=== PATIENT | female | born 1950 | race Caucasian/White ===

== ENCOUNTER 2024-12-10 06:32 | Day surgery (SDC) | payer BC, SELFPAY ==
[2024-12-07 11:34] LABS: Hematocrit 38.6 % (37.0-47.0); Hemoglobin 12.9 g/dL (12.0-16.0); Mean Corp Hgb Conc. 33.4 g/dL (33.0-37.0); Mean Corpuscular Hgb 30.7 pg (27.0-31.0); Mean Corpuscular Volume 91.9 fL (81.0-99.0); Mean Platelet Volume 10.5 fL (7.4-10.4); Platelet Count 181 10^3/uL (130-400); Red Cell Dist. Width 12.9 % (11.5-14.5); White Blood Cell Count 5.3 10^3/uL (4.8-10.8)
[2024-12-07 11:45] LABS: INR 1.03; PT 13.8 Sec (11.4-14.6)
[2024-12-07 11:46] LABS: APTT 31.3 Sec (23.4-35.0)
[2024-12-07 12:26] LABS: ALT (SGPT) 16 U/L (0-35); AST (SGOT) 26 U/L (14-36); Albumin 4.5 g/dl (3.5-5.0); Alkaline Phosphatase 109 U/L (38-126); Blood Urea Nitrogen 21 mg/dl (7-17); Calcium 9.4 mg/dl (8.4-10.2); Glucose 87 mg/dl (70-99); Total Bilirubin 0.6 mg/dl (0.2-1.3); Total Protein 6.7 g/dl (6.3-8.2); eGFR 59.12
[2024-12-07 12:43] LABS: Carbon Dioxide 26 mmol/L (22-30); Chloride 107 mmol/L (98-107); Potassium 4.5 mmol/L (3.5-5.1); Sodium 142 mmol/L (135-145)
[2024-12-07 13:48] VITALS: BMI 22.5
[2024-12-07 15:07] LABS: Glycohemoglobin (HgbA1c) 5.3 % (4.0-5.6)
[2024-12-10] VITALS (12 sets, daily range): BP systolic 108–156; BP diastolic 60–116; BMI 22.5; BMI 23.0
[2024-12-10] MEDS: NORMOSOL-R/PLASMALYTE-A 1000 IV ×2 (12:08→19:21)
--- NOTE | 2024-12-10 12:19 | SUR.OPER ---
Patient has Von Willebrand and she is due to Transemic acid at 1500 today per patient and . Spoke with Anesthesia about this and will also pass this onto the OR when they pick patient up for surgery. Will monitor patient.
--- NOTE | 2024-12-10 13:48 | PTCARENOTE ---
Report given to Sierra MONROE.
--- NOTE | 2024-12-10 17:48 | W.IMMPOSTOP ---
Surgical Immed Post Op Note
-
Primary Surgeon: Krista Jang MD
Assisting Surgeon: none
Pre-op Diagnosis: rectal polyp
Post-op Diagnosis: same
Procedure Performed: transanal excision rectal polyp (partial thickness)
Anesthesia Type: MAC plus local
Specimen / Cultures: rectal polyp
Estimated Blood Loss: 25 cc
Complications: no immediate
Operative Findings: soft 4-5 cm right anterior rectal polyp
Will bring in overnight to watch for bleeding (h/o bleeding dyscrasia)
[2024-12-10 19:07] LABS: % Basophils 0.7 % (0-2); % Eosinophils 0.8 % (0-6); % Immature Granulocytes 0.2 % (0-0.5); % Lymphocytes 9.1 % (20.5-51.1); % Monocytes 2.9 % (1.7-9.3); % Neutrophils 86.3 % (42.2-75.2); Absolute Basophils 0.1 10^3/uL (0-0.2); Absolute Eosinophils 0.1 10^3/uL (0-0.7); Absolute Monocytes 0.3 10^3/uL (0.1-0.6); Absolute Neutrophils 9.1 10^3/uL (1.4-6.5); Hematocrit 35.9 % (37.0-47.0); Hemoglobin 12.2 g/dL (12.0-16.0); Mean Corpuscular Volume 91.3 fL (81.0-99.0); Mean Platelet Volume 9.9 fL (7.4-10.4); Nucleated Red Blood Cells % 0 %; Platelet Count 152 10^3/uL (130-400); Red Blood Cell Count 3.93 10^6/uL (4.20-5.40); White Blood Cell Count 10.6 10^3/uL (4.8-10.8)
[2024-12-10 19:29] LABS: Blood Urea Nitrogen 16 mg/dl (7-17); Calcium 8.7 mg/dl (8.4-10.2); Carbon Dioxide 22 mmol/L (22-30); Chloride 107 mmol/L (98-107); Estimated Creatinine Clearance 51 ml/min; Glucose 89 mg/dl (70-99); Magnesium 2.3 mg/dl (1.6-2.3); Potassium 3.7 mmol/L (3.5-5.1); Sodium 140 mmol/L (135-145); eGFR > 60.00
[2024-12-10] MEDS: TYLENOL PO (20:50)
[2024-12-10] MEDS: BENTYL 20 MG PO (22:29)
[2024-12-10] MEDS: NON-FORMULARY ITEM 2 UNIT PO (22:29)
[2024-12-11] MEDS: TYLENOL 650 MG PO ×3 (00:04→08:11)
[2024-12-11 03:00] VITALS: BP 137/90
[2024-12-11 07:08] LABS: % Basophils 0.2 % (0-2); % Immature Granulocytes 0.3 % (0-0.5); % Lymphocytes 6.2 % (20.5-51.1); % Monocytes 4.7 % (1.7-9.3); % Neutrophils 88.6 % (42.2-75.2); Absolute Lymphocytes 0.6 10^3/uL (1.2-3.4); Absolute Monocytes 0.5 10^3/uL (0.1-0.6); Absolute Neutrophils 8.5 10^3/uL (1.4-6.5); Hematocrit 33.9 % (37.0-47.0); Hemoglobin 11.6 g/dL (12.0-16.0); Mean Corp Hgb Conc. 34.2 g/dL (33.0-37.0); Mean Corpuscular Hgb 30.9 pg (27.0-31.0); Mean Corpuscular Volume 90.2 fL (81.0-99.0); Mean Platelet Volume 10.2 fL (7.4-10.4); Nucleated Red Blood Cells % 0 %; Platelet Count 158 10^3/uL (130-400); Red Blood Cell Count 3.76 10^6/uL (4.20-5.40); Red Cell Dist. Width 12.8 % (11.5-14.5); White Blood Cell Count 9.6 10^3/uL (4.8-10.8)
[2024-12-11 07:34] LABS: Blood Urea Nitrogen 13 mg/dl (7-17); Calcium 8.9 mg/dl (8.4-10.2); Carbon Dioxide 20 mmol/L (22-30); Chloride 111 mmol/L (98-107); Estimated Creatinine Clearance 56 ml/min; Glucose 100 mg/dl (70-99); Magnesium 2.3 mg/dl (1.6-2.3); Potassium 4.2 mmol/L (3.5-5.1); Sodium 139 mmol/L (135-145); eGFR > 60.00
[2024-12-11 07:45] VITALS: BP 138/83
[2024-12-11] MEDS: ZOLOFT 150 MG PO (08:10)
[2024-12-11] MEDS: NORMOSOL-R/PLASMALYTE-A 1000 IV (08:10)
[2024-12-11] MEDS: BENTYL 20 MG PO (08:11)
[2024-12-11] MEDS: NON-FORMULARY ITEM 1 UNIT PO (08:11)
[2024-12-11] MEDS: TOPROL XL 25 MG PO (08:11)
--- NOTE | 2024-12-11 10:32 | W.PN.CRS1 ---
Today's Communication / Plan
-
discharge
Assessment/Plan
-
POD#1 transanal excision rectal polyp (partial thickness)
Hgb 11.6 (12.2), WBC 9.6, Platelet 158
-Start on a regular diet
-OOB as tolerated
-Pain is well controlled
-Patient has TXA at home if needed
-Okay for discharge today (hgb stable). She will call if she has any bleeding problems at home.
-OR pathology pending. Will call with results.
Subjective Data
Procedure
12/10/2024- transanal excision rectal polyp (partial thickness)
Subjective Data
Date of Service: December 11, 2024
Patient states she feels great. She is only having minor spotting. No overt bleeding. She is hungry. Denies nausea or vomiting. Pain controlled.
Objective Data
-
Vital Signs
Temp Pulse Resp BP Pulse Ox
98.2 F 91 18 138/83 98
12/11/24 07:45 12/11/24 07:45 12/11/24 07:45 12/11/24 07:45 12/11/24 07:45
Intake & Output
12/10/24 12/11/24 12/12/24
06:59 06:59 06:59
Intake Total 580 / 580
Balance 580 / 580
Intake:
Oral fluids 480 / 480
IV fluids (Total) 100 / 100
Normosol 100 / 100
Other:
Number of approximated MODERATE 2
amounts of urine
Lab Results
12/11/24 06:26
12/11/24 06:26
Physical Exam
-
General: No Acute Distress and AOx3
Abdomen: Soft, Non Distended and Non Tender
Skin: Warm and Dry
--- NOTE | 2024-12-11 11:05 | CM ---
Cm reviewed medical records. Patient lives independently with . Patient is not currently with any VN. Patient does not have a history of SNF or DME> Patient is active with her PCP. Patient uses [facility] in [place].
PLAN: home with no needs.
[2024-12-11 11:40] VITALS: BP 133/71
== END 2024-12-11 13:08 | disposition home or self-care (01) ==
LOC: SDS 06:32
PROVIDERS: ATTENDING PHYSICIAN Surgery; FAMILY PHYSICIAN Family Medicine; OTHER PHYSICIAN Internal Medicine Hematology
DX: D12.8 Benign neoplasm of rectum (principal)
CPT/HCPCS: 45171; 88305; 36415; 80048; 80053; 83036; 83735; 85025; 85027; 85610; 85730; 86850; 86900; 86901; 93005